=== PATIENT | female | born 1960 | race Caucasian/White ===

== ENCOUNTER → 2016-11-30 | Outpatient (CLI) | payer OTHER ==
[2015-03-02 14:30] VITALS: BP 117/86
[~2016-11-30] MED LIST: DEXT10CA10 PO; DEXT30TA2 PO; DEXT5TAB27 PO; LORA2TAB PO; METH10OR PO; VENL150C PO
--- NOTE | 2016-11-30 11:02 | RAD ---
Indication left thyroid nodule. Grayscale imaging targeted to the thyroid was performed. Note is made of a CT examination 09/19/2016 demonstrating calcified nodules in the left lobe. The right lobe of the thyroid measures 1.3 x 3.1 x 1 cm and appears normal. The isthmus appears normal. In the left lobe of the thyroid there is a complex, partially calcified, mass corresponding to that seen on CT measuring approximately 3.7 x 1.9 x 1.4 cm. There is mild adenopathy in the neck likely incidental. IMPRESSION: Complex partially calcified mass in the left lobe of the thyroid. Histologic sampling should be considered.
== END | disposition home or self-care (01) ==
LOC: US 10:01
PROVIDERS: ATTEND Family Medicine
DX: E04.1 Nontoxic single thyroid nodule (principal)
CPT/HCPCS: 76536

== ENCOUNTER → 2017-01-01 | Outpatient (CLI) | payer OTHER ==
[~2017-01-01] VITALS: Ht 162.6 cm; Wt 68.0 kg
[2017-01-01 14:02] VITALS: BP 143/70
--- NOTE | 2017-01-01 15:25 | RAD ---
Indication dominant nodule left lobe of the thyroid. Note is made of the thyroid ultrasound examination 11/30/2016. The known nodule in the left lobe of thyroid was reproduced with ultrasound and authorization representative images were saved. Image guided biopsy was discussed with the patient. The risks of infection and bleeding were outlined. The possibility of a nondiagnostic biopsy was also discussed. The patient understood the risks associated with the procedure and wished to proceed. The skin was prepped and draped in the routine fashion. A medial to lateral approach was selected. Local anesthesia was accomplished with 1% lidocaine. 3 FNA samples, with 25-gauge needles, were obtained. (The biopsy was limited secondary to the significant calcifications associated with the left lobe of the thyroid). A Rotex sample was also obtained. Pathology was present during the procedure. All retrieved tissue was submitted to same. The patient tolerated the procedure unremarkably. The patient was watched in the department for approximately 20 minutes following the procedure and discharged with appropriate instructions IMPRESSION: Successful sampling, under ultrasound guidance, of a dominant nodule in the left lobe of the thyroid
--- NOTE | 2017-01-02 17:06 | PATHOLOGY ---
CYTOPATHOLOGY REPORT CLINICAL HISTORY: Left thyroid complex-dominant nodule with focal ca++. SPECIMEN(S) RECEIVED: A.Fine needle aspiration, Left thyroid FINAL DIAGNOSIS: Left thyroid nodule, fine needle aspiration: - [facility] Category: Benign - Clusters of follicular epithelial cells, histiocytes, colloid, and blood identified. COMMENT: The findings are consistent with an adenomatous nodule. (JPM:mgr; d/t: 01/02/17) PATHOLOGIST: Justice Armando M.D. REPORT ELECTRONICALLY SIGNED BY: Justice Armando M.D. DATE/TIME: 01/02/2017 17:05 GROSS PATHOLOGY: A. Fine needle aspiration, Left thyroid: The specimen is labeled "Left thyroid" and consists of two fixed slides, two air dried slides, two H and E slides. Thirty mL of clear pink fluid in Cytolyt from the needle rinse is also submitted and One ThinPrep slide was prepared from this material. (clt 01.01.2017) Also received is the RNARetain vial which will be held for molecular studies if needed. CENTRAL OFFICE INSPECTOR(S): ROBERTO Donahue(ASCP) INITIAL CPT CODE(S): A; 41014 Professional services performed [place] [facility] [place] [address] Technical services performed by [facility] at [address] [place] [address], [address], [place] [address]. PATIENT: TORI ANN /AGE: 705/30/1960 (Age: 56) SEX: F PATIENT #: [id number] ALT CASE #: SPECIMEN COLLECTION DATE: 01/01/2017 SPECIMEN RECEIVED DATE: 01/01/[address] [facility] [address] [place] [address], [address] [place] [address] PHONE: [phone] DIRECTOR: Teddy Murillo M.D. * * * END OF REPORT * * *
== END | disposition home or self-care (01) ==
LOC: US 08:00
PROVIDERS: ATTEND Family Medicine
DX: E04.2 Nontoxic multinodular goiter (principal)
CPT/HCPCS: 60300; 76942; 88173

== ENCOUNTER → 2019-07-01 | Outpatient (CLI) | payer MEDICAID ==
[2017-01-01 14:02] VITALS: BP 143/70
[~2019-07-01] MED LIST changes: +IOHEXOL 240 MG/ML 50ML VIAL. PO ONE; +IOHEXOL 300 MG/ML 100ML VIAL. IV ONE
--- NOTE | 2019-07-01 14:46 | KCIC ---
EXAM: Abdomen and pelvis CT with intravenous contrast. HISTORY: Left lower quadrant pain. TECHNIQUE: Computed tomographic images of the abdomen and pelvis were obtained following the administration of 89 cc Omnipaque 300 intravenous contrast. Multiplanar reformatting was performed. *One or more of the following individualized dose reduction techniques were utilized for this examination: 1. Automated exposure control. 2. Adjustment of the mA and/or kV according to patient size. 3. Use of iterative reconstruction technique. COMPARISON: None. FINDINGS: Evaluation of the lower thorax demonstrates posterior dependent atelectasis. There is suspected lingular atelectasis or scarring. The heart is upper normal in size. There is mild distal esophageal mucosal thickening. There is a tiny hiatal hernia. There is hepatomegaly and hepatic steatosis. No focal hepatic lesion is seen. The gallbladder is contracted. There is mild biliary ductal dilatation. There is a slightly prominent downstream pancreatic duct. No lesion is seen at the level of the ampulla. There is a splenule adjacent to a normal sized spleen. There are few splenic granulomas. The adrenal glands are unremarkable. There are small bilateral renal cysts. There is left renal cortical lobulation likely due to scarring. This is superimposed on left renal cortical thinning. There is a prominent left renal collecting system. No obstructing lesion is seen. The urinary bladder is unremarkable. There is no appendicitis. There is a large amount of stool throughout the colon. There are few sigmoid diverticula. There is no convincing colitis or diverticulitis. The uterus and adnexal regions are unremarkable. There is no lymphadenopathy. There is no suspicious osseous lesion. There are few benign bone islands. IMPRESSION: 1. Large amount of colonic stool. Correlate for constipation. 2. Mildly prominent left renal collecting system suggesting mild hydronephrosis. No obstructing lesion is seen. Correlate with urinalysis. 3. Small renal cysts and left renal cortical scarring. 4. Mild distal esophageal mucosal thickening likely due to relative under distention.. There is a small hiatal hernia. 5. Hepatomegaly and hepatic steatosis. 6. Slight biliary and downstream pancreatic ductal dilatation. ERCP or MRCP can be performed if there is concern for an obstructing etiology. 7. Few distal colonic diverticula. Electronically signed by: Urvashi Lopez MD (07/01/2019 2:43 PM) [place] [id number]
== END | disposition home or self-care (01) ==
LOC: KCIC CT 12:13
PROVIDERS: ATTEND Family Medicine
DX: K76.0 Fatty (change of) liver, not elsewhere classified (principal); K57.30 Diverticulosis of large intestine without perforation or abscess without bleeding; K82.0 Obstruction of gallbladder; D73.89 Other diseases of spleen; N28.1 Cyst of kidney, acquired; N28.89 Other specified disorders of kidney and ureter; J98.11 Atelectasis; J44.9 Chronic obstructive pulmonary disease, unspecified; F17.200 Nicotine dependence, unspecified, uncomplicated
CPT/HCPCS: 74177; Q9966; Q9967

== ENCOUNTER → 2021-12-26 | Outpatient (CLI) | payer MEDICAID ==
[2017-01-01 14:02] VITALS: BP 143/70
[~2021-12-26] MED LIST changes: -IOHEXOL 240 MG/ML 50ML VIAL. PO ONE; -IOHEXOL 300 MG/ML 100ML VIAL. IV ONE
--- NOTE | 2021-12-27 08:45 | KCIC ---
EXAM: XR THORACOLUMBAR 12/26/2021 3:43 PM CLINICAL INDICATION: Chronic back pain COMPARISON: CT abdomen pelvis 07/01/2019 TECHNIQUE: AP and lateral views of the thoracolumbar spine FINDINGS: There is no acute fracture. Alignment is normal. Disc spaces are maintained. There are tin y anterior osteophytes the lower thoracic spine. IMPRESSION: No acute osseous abnormality. Minimal degenerative disc disease in the lower thoracic sp ine. Electronically signed by: Jeanne López MD (12/27/2021 8:42 AM) [id number]
== END ==
LOC: KCIC 15:38
PROVIDERS: ATTEND Family Medicine
DX: M54.50 Low back pain, unspecified (principal)
CPT/HCPCS: 72080